=== PATIENT | female | born 1930 | race Caucasian/White ===

== ENCOUNTER 2017-04-26 19:14 | Day surgery (SDC) | payer MEDICARE, OTHER ==
[~2017-04-26] VITALS: Ht 162.6 cm; Wt 64.0 kg
[2017-04-26 18:56] VITALS: BP 197/93; PULSE 63; RESP 16; O2SAT 100
[~2017-04-26 19:14] MED LIST: ASPI500T8 PO; ATOR40TA69 PO; CALC-78 PO; CHOL200025 PO; HYDR-4003 PO; LISI10TA PO; METO50TA3 PO; MULT-1018 PO; ONDA-53 PO; POLY17PO6 PO; nitroquick SL
--- NOTE | 2017-04-26 19:52 | PCM.ENDCOL ---
Colonoscopy Date of Service: Apr 26, 2017 Physician Preet Santos MD Pre Procedure Diagnosis: abn CT Post Procedure Dx & Findings: 2-3 cm lesion at 40 cm Procedure Colonoscopy PROCEDURE IN DETAIL: Perianal examination normal. Digital normal. Normal prostate. Normal sphincter tone. No masses palpable. Scope lubricated, placed in the rectum, passed under direct visualization with the aid of insufflation t0 50 cm from anal verge. FINDINGS: The mucosa of the to the 50 cm was whitish, pink, smooth, glistening, normal- appearing mucosa, normal fine branching, underlying vascularity, normal haustra. At 45 cm, there was a 2-3 cm flat polypoid lesion. the scope easily went around it. Biopsies were obtained and 1 cc vic ink deployed. There were several small diverticuli in the sigmoid colon. IMPRESSION 2-3 cm lesion s/p biopsy and tatoo. Diverticuli RECOMMENDATION Follow up with Dr Olivares. Presedation Assessment Risks and Benefits Informed consent was obtained from the patient after all risks and benefits including but not limited to drug reaction, infection, pain, bleeding, perforation, as well as alternatives were discussed. Patient monitoring Continuous pulse oximetry, cardiac monitoring, blood pressure monitoring, IV access, and oxygen at 2L per nasal cannula. Complications There were no periprocedural complications identified. Post Procedure Plan Post Procedure Recommendations 1. Restrict activities today. 2. Resume normal activities in the morning. 3. Resume medications. 4. Patient informed of normal post procedure side effects as bloating, drowsiness, blood streaking in the stool. 5. average risk CRCS. If colon polyps come back as: -Hyperplastic- can repeat colonoscopy in 10 years -Tubular adenoma- repeat colonoscopy in 5 years -Tubulovillous/villous adenoma- repeat colonoscopy in 3 years -If any dysplasia- return to clinic as soon as possible 6. Please don't hesitate to call me with any questions. Preet Santos MD Apr 26, 2017 19:52
--- NOTE | 2017-04-30 12:42 | PATH ---
SURGICAL PATHOLOGY Attending Physician:Preet Santos M.D. CASE STATUS: Signed Out PATIENT NAME: LIBERTY BRAVO PID: [id number] : 1930 DATE COLLECTED:04/26/2017 00:00 SPECIMEN: Colon, Biopsy CLINICAL HISTORY: 1). COLON MASS @ 40CM BIOPSIES FINAL DIAGNOSIS: Colon Mass at 40 cm, Biopsy: Tubular adenoma with high grade dysplasia; please see comment. ICD10: D12.6 NOTE: One tissue fragment demonstrates a possible focus of desmoplasia. Invasive adenocarcinoma cannot be completely excluded as desmoplastic-type foci can be associated with both overlying, benign mucosal erosion (in superficial biopsies) and with invasive tumor. My gastrointestinal pathologist colleagues, Drs. Paige Gregg, Fidencio Singer, and Bruno Boudreaux, have reviewed this case and concur with the above interpretation. Drs. Santos and Marshall notified of results on 04/30/2017 at approximately 12:30 p.m. GROSS DESCRIPTION: The specimen is received in one formalin filled container labeled with the patient's name, sublabeled "mass at 40 CM" and consists of 2 portions of tissue which aggregate to 0.3 x 0.2 x 0.2 CM. The specimen is entirely submitted in one cassette. 04/27/2017 [facility] ICD-9 CODES: CPT CODES: 1: 48179, 14739, 76463, 64129, 30931 Electronically Signed Out Chichi Sommer MD [facility] Pathology [facility] [address], [place] [address] Technical component performed at [facility], [facility] [address], [place], [address]
== END 2017-04-26 23:59 | disposition home or self-care (01) ==
LOC: END 19:14
PROVIDERS: ATTEND Internal Medicine
DX: D12.6 Benign neoplasm of colon, unspecified (principal); K57.30 Diverticulosis of large intestine without perforation or abscess without bleeding

== ENCOUNTER → 2017-07-18 | Day surgery (SDC) | payer MEDICARE, OTHER ==
[~2017-07-18] VITALS: Ht 162.6 cm; Wt 65.0 kg
[~2017-07-18] MED LIST changes: +ASPI-973 PO; -ASPI500T8 PO; +HYG25 PO; +Ketamine 10 mg/mL 20 mL Inj ONE; +LACT10SO27 PO; +LISI-567 PO; +Lactated Ringer's 1,000 ML IV ONE; +Lactated Ringer's 1,000 ML IV SCH; +MetoCLOpramide 5 mg/mL 2 mL Inj IVPUSH PRN; +NITR0.4T6 SL; +Ondansetron 2 mg/mL 2 mL Inj IVPUSH PRN; -POLY17PO6 PO; +PSYL0.4C2 PO; +Propofol 10,000 mCg/mL 20 mL Inj ONE; -nitroquick SL
--- NOTE | 2017-07-18 07:36 | PCM.HPANE ---
Patient Data Surgeon Admitting Provider: Attending Provider:Preet Santos MD Primary Care Physician:Hilda Hopepr MD Other Provider:BalocSelenaLowman Anesthesia Reason for Visit Lesion On Colon Ht/WT & BMI Body Mass Index Allergies Coded Allergies: No Known Allergies (Verified Allergy, Unknown, 02/29/16) Past Anesthesia History Anesthesia History: Denies:: Abnormal Airway, Anesthesia Reactions, Difficult Intubation, Fam Anesthesia Reaction, Fam Malignant Hypertherm, Malignant Hyperthermia Diabetes History Hx Diabetes?: No MRSA MRSA: No Medications Blood Thinner: Aspirin Hypertension Medication: Yes Home Meds Incl Beta Alayna: No Active Scripts Hydrocodone-Acetaminophen 5-325 mg 1 Each Tablet1-2 Tablet PO Q4H PRN For Moderate Pain #60 TABLET Prov:Quan Melendez PA-C 03/07/16 Reported Medications Metoprolol Tartrate 50 Mg Lpginm18 Mg PO BID 30 Days Ref 0 1 in am 2 in pm 07/18/17 Nitroglycerin SL 0.4 Mg Tab.subl0.4 Mg SL DIRECTED PRN For Chest Pain 07/16/17 Lisinopril 20 Mg Utetak61 Mg PO BID 30 Days Ref 0 07/16/17 Lactulose 10 Gm/15 Ml Kaonhess01 Gm PO BID 07/16/17 Chlorthalidone 25 Mg Omueoy06 Mg PO DAILY #30 TABLET 07/16/17 Aspirin 81 Mg Kotbgr88 Mg PO DAILY Ref 0 07/16/17 Cholecalciferol (Vitamin D3) (Vitamin D3)2,000 Unit Tablet2,000 Unit PO DAILY 03/05/16 Multivitamin (Multi Vitamin Daily)1 Each Tablet1 Each PO DAILY 30 Days Ref 0 03/05/16 Lisinopril 10 Mg Kkzeol82 Mg PO DAILY 30 Days Ref 0 03/05/16 Calcium Carbonate/Vitamin D3 (Calcium 500 + Vit D Caplet)1 Each Tablet1 Each PO DAILY 03/05/16 Atorvastatin Calcium 40 Mg Hxjwnz87 Mg PO HS #30 TABLET Ref 0 08/17/14 Discontinued Reported Medications Psyllium Husk (Metamucil)0.4 Gram Capsule1 Tsp PO DAILY 07/16/17 Ondansetron 4 Mg Tablet4 Mg PO prn PRN For Nausea 03/05/16 [nitroquick] No Conflict Check0.4 Mg SL PRN chest pain 03/05/16 Metoprolol Tartrate 50 Mg Hwtxzv91 Mg PO BID 30 Days Ref 0 03/05/16 Polyethylene Glycol 3350 (Miralax)17 Gm Powd.pack17 Gm PO DAILY 03/05/16 Discontinued Scripts Aspirin EC 500 Mg Tablet.dr325 Mg PO BID DVT prophylaxis #1 BOTTLE Ref 0 Prov:Quan Melendez Natalie SLATER 03/07/16 History History of ENT Problems?: Yes HEENT History: Positive for:: Cataracts (removed in 2010) Denies:: Abnormal Airway Difficult Intubation Dysphagia Hearing Problem Sinus Problem Denture Type: None Teeth Condition: Within Normal Limits Hx of Heart Problems?: Yes Cardiovascular History: Positive for:: Edema (occasional) Hypertension Denies:: AICD Atrial Fibrillation Cardiac Surgery Chest Pain Congestive Heart Failure Heart Murmur Irregular Heartbeat Pacemaker Thrombophlebitis Valvular Heart Disease Hx of Respiratory Problem?: No Respiratory History: Denies:: Asthma COPD Chest Surgery Cough Dyspnea Emphysema Hemoptysis Pneumonia Tuberculosis Hx Neurologic Problems?: No Neurological History: Denies:: Alzheimer's Disease CVA Dementia Dizziness Headaches Parkinson's Disease Seizures Hx of GI Problems?: Yes Hx of Problems?: No Genitourinary History: Denies:: HX of Hemodialysis Kidney Stones Urinary Tract Infection HX of Peritoneal Dialysis: No Female Hx: Denies:: Currently Endometriosis Pelvic Inflammatory Problems with Breasts? Skin History: Denies:: History Skin Disorders? Pressure Ulcers Hx Musculoskeletal Problems?: Yes Musculoskeletal History: Denies:: Back Injury Joint Replacement Musculoskeletal Trauma Hx of Psycho/Social Problems?: No Psycho Social History: Denies:: Anxiety Bipolar Disorder Hx Depression Suicide Attempt Hx Surgeries?: Yes (stent placed) Hx Any Other Health Problems?: Yes Other History: Denies:: Cancer Endocrine Disease Hospitalization Thyroid Disease History Blood Transfusions: Denies:: Blood Transfusions Hx Diabetes: No Hx Alcohol Use: NoHx Substance Use: No Smoking Status: Never Smoker Have You Smoked inLast 12 mo: No Stop/Bang Treated for Sleep Apnea?: No Do You Have a CPAP Machine?: No ZOE Risk Assessment: Low Risk, <3 Yes Risk Assessment Category Category 1A: Patient has history of documented sleep apnea, and HAS NOT received any narcotic, sedative or anesthesia administration during this stay. Category 1B: Patient has history of documented sleep apnea, and HAS received any narcotic , sedative or anesthesia administration during this stay Category 2: Patient has SUSPECTED Obstructive Sleep Apnea, and HAS received any narcotic , sedative or anesthesia administration during this stay. Category 3: Patient has SUSPECTED Obstructive Sleep Apnea and HAS NOT received narcotic, sedative or anesthesia administration during this stay. Category 4: Outpatient in Procedural Areas with known sleep apnea or who screen positive for High Risk via the STOP/BANG questionnaire. Exam Exam General Appearance: Alert, Oriented X3, Cooperative, No Acute Distress HEENT/AIRWAY: MP 2 Lungs: Clear to Auscultation, Normal Air Movement Heart: Exam Unremarkable, Regular Rate/Rhythm, No Murmurs/Rubs/Gallops Plan Impression Patient chart reviewed, patient interviewed and anesthestic plan with risks, benefits, and alternatives discussed, and informed consent obtained. NPO per Anesth. Guidelines: Yes ASA Physical Status: ASA3 Severe Disease Anesthetic Plan: MAC Bene/Risks/Altern/Consents: Yes HP Complete Prior to Induction: Yes Sidney Luu MD Jul 18, 2017 07:36
[2017-07-18 08:40] VITALS: BP 161/79; PULSE 71; RESP 16; O2SAT 98
--- NOTE | 2017-07-18 09:28 | PCM.ENDCOL ---
Colonoscopy Date of Service: Jul 18, 2017 Physician Preet Santos MD Pre Procedure Diagnosis: Colon polyp Post Procedure Dx & Findings: Sigmoid lesion 2 cm. Diverticuli. Polyps. Hemorrhoids. Procedure Colonoscopy PROCEDURE IN DETAIL: Sedation by anesthesiology Prep adequate Withdrawal time 15 minutes After unremarkable rectal examination the Olympus video colonoscope was inserted patient's anal canal and was advanced to cecum. Landmarks were identified including the ileocecal valve and appendiceal orifice. Scope was withdrawn systematically. Visualized colonic mucosa showed healthy shiny mucosa with normal healthy-appearing vasculature. In the cecum, there was a 6 mm flat polyp which was removed completely using cold snare. In the transverse colon there was a 3 mm polyp which was removed completely using cold snare. In the sigmoid colon, there was a 2 cm lesion. With anesthesia, I was able to get a better look. There is some friability noted. With some central scarring. Biopsies done multiple. Tattoo noted from flexible sigmoidoscopy. Diverticuli noted mostly in the sigmoid colon however isolated although up to the ascending colon. In the rectum retroflexion was done which showed hemorrhoids. Anal canal was inspected carefully on the way out and hemorrhoids noted. Impression 2 cm colonic lesion. Colon polyps 2 status post complete removal Diverticuli Hemorrhoids Recommendation I will up in the GI clinic and follow-up with Dr. Olivares in surgery. Diverticular diet Presedation Assessment Risks and Benefits Informed consent was obtained from the patient after all risks and benefits including but not limited to drug reaction, infection, pain, bleeding, perforation, as well as alternatives were discussed. Patient monitoring Continuous pulse oximetry, cardiac monitoring, blood pressure monitoring, IV access, and oxygen at 2L per nasal cannula. Complications There were no periprocedural complications identified. Post Procedure Plan Post Procedure Recommendations 1. Restrict activities today. 2. Resume normal activities in the morning. 3. Resume medications. 4. Patient informed of normal post procedure side effects as bloating, drowsiness, blood streaking in the stool. 5. average risk CRCS. If colon polyps come back as: -Hyperplastic- can repeat colonoscopy in 10 years -Tubular adenoma- repeat colonoscopy in 5 years -Tubulovillous/villous adenoma- repeat colonoscopy in 3 years -If any dysplasia- return to clinic as soon as possible 6. Please don't hesitate to call me with any questions. Preet Santos MD Jul 18, 2017 09:28
[2017-07-18 09:34] VITALS: BP 138/67; PULSE 67; RESP 16; O2SAT 100
[2017-07-18 09:42] VITALS: BP 150/71; PULSE 68; RESP 16; O2SAT 100
[2017-07-18 09:51] VITALS: BP 154/70; PULSE 63; RESP 16; O2SAT 99
--- NOTE | 2017-07-19 09:16 | PCM.ANEP1 ---
Post Anesthesia PACU Phase 1 Assessment Anesthetic Administered: MAC Level of Alertness: Awake, talking GUADARRAMA's with Equal Strength: Yes Pain: No Nausea or Vomiting: No CV Function & Hydration Stable: Yes Airway Device: none Lungs: Clear to Auscultation, Normal Air Movement Dermatome Level: Full Sensation PACU Phase 2 Assessment Complications: No Follow up Care: No Patient Instructions Provided: N/A Sidney Luu MD Jul 19, 2017 09:16
--- NOTE | 2017-07-22 16:54 | PATH ---
SURGICAL PATHOLOGY Attending Physician:Preet Santos M.D. CASE STATUS: Signed Out PATIENT NAME: LIBERTY BRAVO PID: [id number] : 1930 DATE COLLECTED:07/18/2017 21:46 SPECIMEN: 1: Colon, Polyp 2: Colon, Polyp 3: Colon, Biopsy CLINICAL HISTORY: 1). CECAL POLYP X1 2). TRANSVERSE POLYP X1 3). SIGMOID MASS X1 FINAL DIAGNOSIS: 1. Cecal Polyp, Polypectomy: Sessile serrated adenoma. 2. Transverse Colon Polyp, Polypectomy: Serrated polyp, favor sessile serrated adenoma. 3. Sigmoid Mass, Biopsy: Adenocarcinoma, moderately differentiated. ICD10: C18.9 NOTE: Part 3: As part of routine quality compliance coordinator, Dr. Zee has reviewed part 3 of this case agrees with the above interpretation. The preliminary findings were reported to Dr. Santos's nurse February, on 07/22/2017 at 11:15 a.m. GROSS DESCRIPTION: Received three formalin-filled containers, each labeled with the patient' s name. 1. Received in formalin, labeled with the patient' s name and "colon polyp", is one fragment of elliott, firm tissue measuring 1.0 x 0.7 x 0.1 cm. The fragment is totally submitted in cassette 1A. 2. Received in formalin, labeled with the patient' s name and "transverse polyp", are four fragments of elliott, soft tissue ranging from 0.2 x 0.1 x 0.1 cm to 0.5 x 0.4 x 0.2 cm. The fragments are totally submitted in cassette 2A. 3. Received in formalin, labeled with the patient' s name and "sigmoid mass biopsy", are five fragments of elliott, soft tissue ranging from 0.3 x 0.1 x 0.1 cm to 0.7 x 0.1 x 0.1 cm. The fragments are totally submitted in cassette 3A. [id number]) ICD-9 CODES: CPT CODES: 1: 86321 2: 07335 3: 52509 Electronically Signed Out Blayne Nichole MD, Ph.D. [facility] Pathology [facility]., [address] [place] [address], [place] [address] Technical component performed at [facility], [address], [place], [address]
== END | disposition home or self-care (01) ==
LOC: END 01:22
PROVIDERS: ATTEND Internal Medicine
DX: Z12.11 Encounter for screening for malignant neoplasm of colon (principal); C18.7 Malignant neoplasm of sigmoid colon; D12.0 Benign neoplasm of cecum; D12.3 Benign neoplasm of transverse colon; K57.30 Diverticulosis of large intestine without perforation or abscess without bleeding; K64.8 Other hemorrhoids; Z86.010 Personal history of colon polyps; I10 Essential (primary) hypertension; E78.5 Hyperlipidemia, unspecified; I25.2 Old myocardial infarction; M81.0 Age-related osteoporosis without current pathological fracture; Z86.73 Personal history of transient ischemic attack (TIA), and cerebral infarction without residual deficits; Z79.82 Long term (current) use of aspirin
CPT/HCPCS: 45385; J2704

== ENCOUNTER 2017-08-16 05:50 | Inpatient (IN) | payer MEDICARE, OTHER ==
[2017-08-16] VITALS (8 sets, daily range): BP systolic 154–184; BP diastolic 65–82; PULSE 65–72; RESP 14–24; O2SAT 99–100
[~2017-08-16] VITALS: Ht 162.6 cm; Wt 69.0 kg
[2017-08-16] MEDS: Lactated Ringer's 1,000 ML IV SCH ×4 (05:00→10:00)
[~2017-08-16 05:50] MED LIST changes: +Dexamethasone 4 mg/mL Inj ONE; -HYDR-4003 PO; +HYDROmorphone 1 mg/mL Inj ONE; -Ketamine 10 mg/mL 20 mL Inj ONE; -LISI10TA PO; -Lactated Ringer's 1,000 ML IV ONE; -Lactated Ringer's 1,000 ML IV SCH; -MetoCLOpramide 5 mg/mL 2 mL Inj IVPUSH PRN; +MetoCLOpramide 5 mg/mL 2 mL Inj ONE; +NITR0.4T38 SL; -NITR0.4T6 SL; -ONDA-53 PO; -Ondansetron 2 mg/mL 2 mL Inj IVPUSH PRN; +Ondansetron 2 mg/mL 2 mL Inj ONE; -PSYL0.4C2 PO; +Rocuronium 10 mg/mL 5 mL Inj ONE
[2017-08-16] MEDS ORDERED: metroNIDAZOLE Inj 500 MG in IV Premix 1 EACH IV ONE (06:00)
[2017-08-16] MEDS ORDERED: CeFAZolin Inj 2 GM in IV Premix 1 EACH IV ONE (06:00)
[2017-08-16] MEDS ORDERED: METO50TA3 PO (06:40)
[2017-08-16] MEDS ORDERED: LACT10SO64 PO (06:40)
--- NOTE | 2017-08-16 07:17 | PCM.HPANE ---
Patient Data Surgeon Admitting Provider: Attending Provider:Lelia Olivares MD Primary Care Physician:Hilda Hopper MD Other Provider:Salvador Perez Anesthesia Reason for Visit Sigmoid Colon Cancer Ht/WT & BMI Height (Feet): 5 Height (Inches): 4 Weight (Kilograms): 64.5 Body Mass Index 24.00 Allergies Coded Allergies: No Known Allergies (Verified Allergy, Unknown, 08/14/17) Past Anesthesia History Anesthesia History: Denies:: Abnormal Airway, Anesthesia Reactions, Difficult Intubation, Fam Anesthesia Reaction, Fam Malignant Hypertherm, Malignant Hyperthermia Diabetes History Hx Diabetes?: No MRSA MRSA: No Medications Blood Thinner: Aspirin Hypertension Medication: Yes (LISINOPRIL,CHLORTHALIDONE) Home Meds Incl Beta Alayan: Yes Date Beta Alayna Taken: Aug 16, 2017 Time Beta Alayna Taken: 344 Reported Medications Metoprolol Tartrate 50 Mg Goizic309 Mg PO HS 30 Days Ref 0 08/16/17 Lactulose (Constulose)10 Gm/15 Ml Solution1 Tbs PO HS PRN For Constipation #300 08/16/17 Metoprolol Tartrate 50 Mg Dwkbyk47 Mg PO AM 30 Days Ref 0 1 in am 2 in pm 07/18/17 Nitroglycerin SL 0.4 Mg Tab.subl0.4 Mg SL DIRECTED PRN For Chest Pain 07/16/17 Lisinopril 20 Mg Tfioet95 Mg PO BID 30 Days Ref 0 07/16/17 Chlorthalidone 25 Mg Bwgrxk82 Mg PO DAILY #30 TABLET 07/16/17 Aspirin 81 Mg Iywsyv92 Mg PO DAILY Ref 0 07/16/17 Cholecalciferol (Vitamin D3) (Vitamin D3)2,000 Unit Tablet2,000 Unit PO DAILY 03/05/16 Multivitamin (Multi Vitamin Daily)1 Each Tablet1 Each PO DAILY 30 Days Ref 0 03/05/16 Calcium Carbonate/Vitamin D3 (Calcium 500 + Vit D Caplet)1 Each Tablet1 Each PO DAILY 03/05/16 Atorvastatin Calcium 40 Mg Xacyoq61 Mg PO HS #30 TABLET Ref 0 08/17/14 Discontinued Reported Medications Lactulose 10 Gm/15 Ml Ukxrxwiu92 Gm PO BID 07/16/17 Lisinopril 10 Mg Whtugt13 Mg PO DAILY 30 Days Ref 0 03/05/16 Discontinued Scripts Hydrocodone-Acetaminophen 5-325 mg 1 Each Tablet1-2 Tablet PO Q4H PRN For Moderate Pain #60 TABLET Prov:Quan Melendez PA-C 03/07/16 History History of ENT Problems?: Yes HEENT History: Positive for:: Cataracts (S/P EXTRACTIONS) Denies:: Abnormal Airway Difficult Intubation Dysphagia Hearing Problem Sinus Problem Denture Type: None Teeth Condition: Within Normal Limits Hx of Heart Problems?: Yes Cardiovascular History: Positive for:: Chest Pain (HX [place] 2013) Coronary Artery Disease Edema (occasional) Heart Murmur (GR SYSTOLIC ECHO 07/2016 EF 55%) Hypertension (HYPERLIPIDEMIA) Valvular Heart Disease (MILD MR, TR MILD-MOD AR) Denies:: AICD Atrial Fibrillation Cardiac Surgery (HEART CATH KENNA- RCA 2013) Congestive Heart Failure Irregular Heartbeat Pacemaker Thrombophlebitis Hx of Respiratory Problem?: No Respiratory History: Denies:: Asthma COPD Chest Surgery Cough Dyspnea Emphysema Hemoptysis Pneumonia Tuberculosis Use of C-PAP Machine Hx Neurologic Problems?: Yes Neurological History: Positive for:: TIA (11/2015 LT HAND WEAKNESS) Denies:: Alzheimer's Disease CVA Dementia Dizziness Headaches Parkinson's Disease Seizures Hx of GI Problems?: Yes Hx of Problems?: No Genitourinary History: Denies:: HX of Hemodialysis Kidney Stones Urinary Tract Infection HX of Peritoneal Dialysis: No Female Hx: Denies:: Currently Endometriosis Pelvic Inflammatory Problems with Breasts? Skin History: Positive for:: History Skin Disorders? (S/P EXC BASAL CELL CA'S) Denies:: Pressure Ulcers Hx Musculoskeletal Problems?: Yes Musculoskeletal History: Positive for:: Back Injury (cervical spondylosis- back pain cannot lie flat) Musculoskeletal Trauma (S/P ORIF LT OLECRANON) Osteoarthritis (OSTEOPOROSIS) Denies:: Joint Replacement Hx of Psycho/Social Problems?: No Psycho Social History: Denies:: Anxiety Bipolar Disorder Hx Depression Suicide Attempt Hx Surgeries?: Yes (FX ARM, CARDIAC STENT 2014, CATARACTS) Hx Any Other Health Problems?: Yes Other History: Positive for:: Cancer (BCC lt arm, scalp,SIGMOID COLON) Thyroid Disease (NEW DX-THYROID NODULES RT-HIGHLY SUSPICIOUS/RECOMMENDED NEEDLE ASPIRATION) Denies:: Endocrine Disease Hospitalization History Blood Transfusions: Denies:: Blood Transfusions Hx Diabetes: No Hx Alcohol Use: NoHx Substance Use: No Smoking Status: Never Smoker Have You Smoked inLast 12 mo: No Stop/Bang Treated for Sleep Apnea?: No Do You Have a CPAP Machine?: No S-Snoring: Do You Snore Loudly: No T-Tired: feel tired, fatigued: No O-Obsered: Observed not breath: No P-Blood Pressure: treated: Yes B- Body Mass Index > 35 kg/m2: No A- Age over 50: Yes N- Neck Large Circumference: No G- Gender Male: No ZOE Total Score: 2 ZOE Risk Assessment: Low Risk, <3 Yes Risk Assessment Category Category 1A: Patient has history of documented sleep apnea, and HAS NOT received any narcotic, sedative or anesthesia administration during this stay. Category 1B: Patient has history of documented sleep apnea, and HAS received any narcotic , sedative or anesthesia administration during this stay Category 2: Patient has SUSPECTED Obstructive Sleep Apnea, and HAS received any narcotic , sedative or anesthesia administration during this stay. Category 3: Patient has SUSPECTED Obstructive Sleep Apnea and HAS NOT received narcotic, sedative or anesthesia administration during this stay. Category 4: Outpatient in Procedural Areas with known sleep apnea or who screen positive for High Risk via the STOP/BANG questionnaire. Exam Exam Vital Signs Vital Signs Date Time Temp Pulse Resp B/P Pulse Ox O2 Delivery O2 Flow Rate FiO2 08/16/17 06:33 36.5 67 17 175/65 100 Room Air General Appearance: Oriented X3 HEENT/AIRWAY: MP 2 Lungs: Normal Air Movement Heart: Murmur Meds/Labs/Diagnostics Admission Meds Current Medications Lactated Ringer's (Lr) 1,000 ml @ 120 mls/hr Q8H20M IV Last administered on t 06:28; Start 08/16/17 at 05:00; Stop 08/16/17 at 13:19 Plan Impression Patient chart reviewed, patient interviewed and anesthestic plan with risks, benefits, and alternatives discussed, and informed consent obtained. NPO per Anesth. Guidelines: Yes ASA Physical Status: ASA3 Severe Disease Anesthetic Support Modalities: Arterial Line Anesthetic Plan: GA Bene/Risks/Altern/Consents: Yes HP Complete Prior to Induction: Yes Castillo Aranda MD Aug 16, 2017 07:17
[2017-08-16] MEDS ORDERED: Bupivacaine-MPF 0.5% 30 mL Inj INFILTRATE ONE (07:28)
[2017-08-16] MEDS ORDERED: Lactated Ringer's 1,000 ML IV SCH (09:28)
[2017-08-16] MEDS ORDERED: Lactated Ringer's 500 ML IV PRN (09:28)
[2017-08-16] MEDS ORDERED: Ondansetron 2 mg/mL 2 mL Inj IVPUSH PRN ×2 (09:30→11:45)
[2017-08-16] MEDS ORDERED: fentaNYL-PF 50 mCg/mL 2 mL Inj IVPUSH PRN (09:30)
[2017-08-16] MEDS ORDERED: HYDROmorphone 1 mg/mL Inj IVPUSH PRN (09:30)
[2017-08-16] MEDS ORDERED: Labetalol 5 mg/mL 20 mL Inj IV PRN (09:30)
[2017-08-16] MEDS ORDERED: Phenylephrine 10,000 mCg/mL Inj IVPUSH PRN (09:30)
[2017-08-16] MEDS ORDERED: Dexamethasone 4 mg/mL Inj IVPUSH PRN (09:30)
[2017-08-16] MEDS ORDERED: MetoCLOpramide 5 mg/mL 2 mL Inj IVPUSH PRN ×2 (09:30→11:45)
[2017-08-16] MEDS ORDERED: EPHEDrine Sulfate 50 mg/mL Inj IVPUSH PRN (09:30)
[2017-08-16] MEDS ORDERED: Bupivacaine Liposome 1.3% 20 mL Inj ONE (11:10)
[2017-08-16] MEDS ORDERED: HYDROmorphone 0.5 mg/0.5 mL iSecure Syringe IVPUSH PRN (11:45)
[2017-08-16] MEDS ORDERED: Polyethylene Glycol (PEG) 17 Gm Powder PO SCH (12:00)
[2017-08-16 12:24] LABS: APPEARANCE,URINE HAZY (CLEAR,HAZY); COLOR,URINE YELLOW (YELLOW); OCCULT BLOOD,URINE NEGATIVE (NEGATIVE); PH,URINE 5.5 (5.0-8.0); UROBILINOGEN,URINE NORMAL (NORMAL)
--- NOTE | 2017-08-16 12:46 | PCM.ANEP1 ---
Post Anesthesia PACU Phase 1 Assessment Vital Signs Vital Signs Date Time Temp Pulse Resp B/P Pulse Ox O2 Delivery O2 Flow Rate FiO2 08/16/17 12:17 66 24 162/82 100 Simple Mask 8 08/16/17 12:05 65 15 161/76 100 Simple Mask 8 08/16/17 12:00 68 16 158/80 100 Simple Mask 8 08/16/17 11:55 68 16 167/72 99 Simple Mask 8 08/16/17 11:50 36.0 65 14 168/70 100 Simple Mask 8 08/16/17 06:33 36.5 67 17 175/65 100 Room Air Anesthetic Administered: GA Level of Alertness: Awake, talking Pain: No Nausea or Vomiting: No CV Function & Hydration Stable: Yes Airway Device: Lungs: Normal Air Movement PACU Phase 2 Assessment Patient Instructions Provided: N/A Castillo Aranda MD Aug 16, 2017 12:45
[2017-08-16] MEDS: Dextrose 5% Lactated Ringer's 1,000 ML IV SCH (13:58)
[2017-08-16] MEDS: Acetaminophen IV 1,000 MG in IV Premix 1 EACH IV SCH ×2 (14:30→19:34)
--- NOTE | 2017-08-16 14:31 | OP ---
[address] [address] OPERATIVE REPORT PATIENT: LIBERTY BRAVO : 1930 MR#: [id number] ADMIT: 08/16/2017 JOB ID: [id number] DATE OF SURGERY: 08/16/2017 SURGEON: Lelia Olivares MD. HOE WORKER: Tavon Ortez MD; Ravindra Bailey PA-C. Assistants were required for dissection and retraction. 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 PROCEDURE PERFORMED: 1. Laparoscopic sigmoid colectomy. 2. Laparoscopic mobilization of splenic flexure. 3. Rectus sheath blocks with liposomal bupivacaine. HISTORY OF PRESENT ILLNESS: This is an 87-year-old woman who presented to my office after she had been having longstanding symptoms of constipation and a CT scan had been ordered by her primary care provider, which showed what was a possible rectal mass. For that reason, she underwent anoscopy followed by flexible sigmoidoscopy, and there was no rectal mass; however, a worrisome polyp was seen at 45 cm. Subsequent full colonoscopy was performed and a biopsy of this 2 cm lesion at 45 cm from the rectal verge revealed adenocarcinoma, moderately differentiated. Additional workup revealed no sign of metastatic disease. Therefore, she was scheduled for sigmoid colectomy. Of note, prior to the operation, a mechanical and antibiotic bowel prep had been performed. FINDINGS: 1. The tattoo associated with the sigmoid cancer was located within the proximal sigmoid colon and was easily identified. 2. Medial to lateral dissection was performed with high ligation of ARIS. 3. The proximal staple line initially was only 2.5 cm from the colon after it was opened on the back table. For this reason, an additional proximal margin was taken. 4. Tariq anastomosis, side-to-end, performed with an EEA stapler. 5 . No sign of leak on testing after the anastomosis. DESCRIPTION OF PROCEDURE: The patient was brought to the operating room and placed in supine position. General anesthesia was induced. A warming blanket and SCDs were placed. She was repositioned into lithotomy position. The IV antibiotics were infused. A warming blanket was placed. The operative field was prepped and draped in sterile fashion. A pause was performed to confirm the correct patient, procedure, side and site. An infraumbilical 10 mm vertical incision was made and the abdomen was entered under direct vision. Additional 5 mm ports were placed in the left upper quadrant, right lower quadrant, lower midline of the abdomen, and left lower quadrant. Ultimately, the lower midline 5 mm port was up- sized to a 12 mm port for the stapler. Inspection of the colon revealed the tattoo in the proximal sigmoid colon. The small intestine was retracted to the right and the colon up to the left. The sacral promontory was identified and the peritoneum overlying the mesentery was divided. A plane was created behind the mesentery and anterior to the retroperitoneum. The ureter was identified and kept posterior throughout the case. It was very carefully preserved. Dissection proceeded proximally under the ARIS and IMV. A window was made on the opposite side of this pedicle. The entire pedicle including both ARIS and IMV was taken with an Endo-ABEL with a vascular load. Hemostasis was achieved. The dissection proceeded out to the abdominal wall and a window was made behind the colon to create a proximal site for stapling. An Endo-ABEL was fired several centimeters proximal to the tattoo. Attention was then turned to the distal site of division. The mesentery was divided with a LigaSure and a distal site was chosen more than 10 cm distal to the tattoo. The colon was carefully cleaned off, both on the mesenteric side and abdominal wall side, the ureter was kept down and away from the colon. The distal site was divided with an Endo-ABEL stapler with a blue load. Three fires were required at this site. At this point, the specimen was free. The vertical midline site below the umbilicus was extended to remove the specimen. I had concerns about the distance of the proximal site from the tattoo, and therefore, the specimen was opened on the back table. The cancer was identified within the specimen, but it was only 2.5 cm distal to the proximal staple line. Gloves were changed, and because that site had been enlarged, a hand port was inserted. The proximal colon was then taken out of the midline site and an additional 3 cm margin was taken and sent for final pathology. Laparoscopic technique was then used to mobilize the splenic flexure in order to create enough laxity such that the anastomosis ultimately would be under no tension. Dr. Gee then went below to assess the size of the anorectal canal in order to choose an EEA stapler. A 29 mm stapler was chosen. The proximal colon was then exteriorized again and a Tariq anastomosis was chosen. An enterotomy was made after placing towels around the wound. The anvil was inserted and a 2-0 Prolene stitch was used to create a pursestring stitch around it. This was tightened and tied. It was reinserted into the abdomen. Gloves were changed and towels were removed. The orientation was checked to confirm that there is no sign of twisting. The EEA stapler was then inserted into the rectum and connected to the anvil laparoscopically. The stapler was fired and carefully removed. A leak test was then performed using air through the rectum and infusion of saline into the pelvis and there was no leak seen. The low mid abdominal 12 mm port site was closed laparoscopically using an interrupted 2-0 PDS and a Gulshan-Dino device. The hand port site in the midline of the abdomen just below the umbilicus was closed with running 2-0 PDS. Liposomal bupivacaine was injected into the rectus sheath for postoperative analgesia. Marcaine was used at all port sites for postoperative analgesia. A 3-0 Vicryl was used to close the subcutaneous tissue of the hand port site. The skin was closed with 4-0 Monocryl. Sterile dressings were placed. The patient was awakened from general anesthesia and taken to the postoperative care unit in good condition. ESTIMATED BLOOD LOSS: 10 mL. SPECIMENS: 1. Sigmoid colon. 2. New proximal margin. 3. Proximal and distal doughnuts from EEA anastomosis. COMPLICATIONS: None. MTDD
[2017-08-16] MEDS: Heparin 5,000 Unit/mL Inj SUBQ SCH (16:40)
[2017-08-17] MEDS: Heparin 5,000 Unit/mL Inj SUBQ SCH ×3 (00:49→16:41)
[2017-08-17] MEDS: Acetaminophen IV 1,000 MG in IV Premix 1 EACH IV SCH (02:30)
[2017-08-17] MEDS: Dextrose 5% Lactated Ringer's 1,000 ML IV SCH ×2 (02:43→12:44)
[2017-08-17 05:54] VITALS: BP 127/69; PULSE 63; RESP 18; O2SAT 97
[2017-08-17 06:36] LABS: BASOPHILS % (AUTO) 0.1 % (0-3); EOSINOPHILS % (AUTO) 0 % (0-5); MONOCYTES % (AUTO) 8.1 % (4-12); Mean Corpuscular Hemoglobin 31.3 pg (27.0-35.0); Mean Corpuscular Volume 90.9 fL (81-100); NEUTROPHILS % (AUTO) 86.5 % (40-74); Platelet Count 241 bil/L (150-400)
--- NOTE | 2017-08-17 08:12 | PCM.PNSURG ---
Subjective Date of Service: Aug 17, 2017 Date of Service: Aug 17, 2017 Visit Information: Reason for Visit Sigmoid Colon Cancer Surgery/Surgery Date Post-Op Day # 1 Date of Admission: Aug 16, 2017 at 13:19 Hospital Day # 2 Subjective: Pain well controlled. No acute events overnight. [place] the urge to have a bowel movement this morning, bloated but couldn't pass anything yet. Tolerated some sips of water but not interested in anything else, no N/V, taking things slowly. Feels the SCDs are restrictive and would like to get up and walk instead. Objective Vital Sign- Last 8 Hours Date Time Temp Pulse Resp B/P Pulse Ox O2 Delivery O2 Flow Rate FiO2 08/17/17 05:54 36.8 63 18 127/69 97 Room Air Intake and Output- Last 8 Hour 08/17/17 Cumulative From/Thru 06:58 08/14/17 12:26 - 08/17/17 05:23 Intake Total 806 ml 2724 ml Output Total 710 ml Balance 806 ml 2014 ml Intake Oral 200 ml IV Total 806 ml 2524 ml Output Urine Total 700 ml Estimated Blood Loss 10 ml General: Alert, Oriented X3, Cooperative, No Acute Distress Lungs: Other (Breathing comfortably on room air) Heart: Other (Regular rate) Abdomen: Other (Soft, moderate distension, incisions c/d/i with bandaids over all port sites, some air to percussion. Appropriately tender.) Extremities: Warm Neuro: Grossly Neurologically Intact Catheters: Urethral 2 Way [place] Result Diagram: 08/17/1753208/17/1733 Assessment & Plan Impression 87F with sigmoid colon adenocarcinoma s/p laparoscopic sigmoid colectomy with stapled anastomosis recovering well on POD#1. Problems: Plan Neuro: Continue scheduled PO tylenol, prn oxycodone and ibuprofen CV/P: Home medications resumed, Aspirin, Beta reina, BP meds FEN/GI: Full liquid diet until return of bowel function, bowel regimen miralax BID, senna-docusate, replete KCl PO today MSK: Physical therapy consult, mobility and assess home needs versus possible SNF Heme/ID: No antibiotics, SQH for DVT prophylaxis, D/C SCDs Dispo: Pending PT evaluation and return of bowel function Tavon Ortez MD Aug 17, 2017 08:12
[2017-08-17] MEDS ORDERED: Potassium Chloride 20 mEq SR Tablet PO ONE (08:15)
[2017-08-17 08:38] VITALS: BP 166/70; PULSE 61; RESP 15; O2SAT 97
[2017-08-17] MEDS: Calcium Carbonate (Oyster Shell) 500 mg Tablet PO SCH (08:43)
[2017-08-17] MEDS: Senna-Docusate 8.6-50 mg Tablet PO SCH (08:43)
[2017-08-17 12:17] VITALS: BP 160/69; PULSE 59; RESP 20; O2SAT 99
[2017-08-17 20:09] VITALS: BP 186/80; PULSE 62; RESP 19; O2SAT 98
[2017-08-17] MEDS: Polyethylene Glycol (PEG) 17 Gm Powder PO SCH (20:27)
[2017-08-18] MEDS: Heparin 5,000 Unit/mL Inj SUBQ SCH ×4 (00:56→23:47)
[2017-08-18] MEDS: Dextrose 5% Lactated Ringer's 1,000 ML IV SCH (01:14)
[2017-08-18 05:26] VITALS: BP 115/73; PULSE 90; RESP 16; O2SAT 93
[2017-08-18 05:28] VITALS: BP 172/65; PULSE 73; RESP 18; O2SAT 95
--- NOTE | 2017-08-18 06:53 | PCM.PNSURG ---
Subjective Date of Service: Aug 18, 2017 Date of Service: Aug 18, 2017 Visit Information: Reason for Visit Sigmoid Colon Cancer Surgery/Surgery Date Post-Op Day # 2 Date of Admission: Aug 16, 2017 at 13:19 Hospital Day # 2 Subjective: Feels well today. Starting to think about when she can go home. Multiple loose bowel movements and gas yesterday. Walked in the hallway three times. No N/V. Minimal abdominal discomfort. Hypertensive but asymptomatic and on home regimen. Tolerated full liquid diet, Impact drinks and oatmeal without issues. Objective Vital Sign- Last 8 Hours Date Time Temp Pulse Resp B/P Pulse Ox O2 Delivery O2 Flow Rate FiO2 08/18/17 05:28 36.6 73 18 172/65 95 Room Air Intake and Output- Last 8 Hour 08/18/17 Cumulative From/Thru 06:58 08/14/17 12:26 - 08/18/17 06:32 Intake Total 1040 ml 5360 ml Output Total 1250 ml 2910 ml Balance -210 ml 2450 ml Intake Oral 1040 ml 2160 ml IV Total 3200 ml Output Urine Total 1000 ml 2650 ml Stool Total 50 ml 50 ml Urine/Stool Mix 200 ml 200 ml Estimated Blood Loss 10 ml # Voids 3 # Bowel Movements 3 General: Alert, Oriented X3, Cooperative, No Acute Distress Lungs: Other (Breathing comfortably on room air.) Abdomen: Benign, Soft, Non-tender, Other (Bandaids removed and incisions are c/ d/i with steri strips in place. Some bruising around the umbilical port site, no cellulitis.) Neuro: Grossly Neurologically Intact Result Diagram: 08/17/17 0533 08/17/1733 Assessment & Plan Impression 87F with sigmoid colon adenocarcinoma s/p laparoscopic sigmoid colectomy with stapled anastomosis recovering well on POD#2. Problems: Plan Neuro: Continue scheduled PO tylenol, prn oxycodone and ibuprofen CV/P: Home medications contined Aspirin, Beta reina, BP meds, hypertensive but receiving home regimen and observing trend, would not add additional medications, permissive HTN okay FEN/GI: Return of bowel function, Soft diet today, Impact recovery drinks, bowel regimen miralax BID okay to hold if loose stools continue, senna-docusate MSK: Physical therapy recs for HH PT x2 weeks mobility Heme/ID: No antibiotics, SQH for DVT prophylaxis Dispo: Potential discharge home tomorrow with HH PT and friend Manasa to provide transportation [place],Tavon Knight MD Aug 18, 2017 06:53
[2017-08-18] MEDS: Calcium Carbonate (Oyster Shell) 500 mg Tablet PO SCH (08:27)
[2017-08-18] MEDS: Polyethylene Glycol (PEG) 17 Gm Powder PO SCH ×2 (08:27→20:02)
[2017-08-18] MEDS: Senna-Docusate 8.6-50 mg Tablet PO SCH (08:27)
[2017-08-18 11:10] VITALS: BP 135/58; PULSE 77; RESP 17; O2SAT 96
[2017-08-18 19:56] VITALS: BP 164/72; PULSE 52; RESP 16; O2SAT 98
[2017-08-19 06:37] VITALS: BP 162/80; PULSE 55; RESP 16; O2SAT 97
--- NOTE | 2017-08-19 08:25 | PCM.PNSURG ---
Subjective Date of Service: Aug 19, 2017 Date of Service: Aug 19, 2017 Visit Information: Reason for Visit Sigmoid Colon Cancer Surgery/Surgery Date Post-Op Day # 3 s/p 1. Laparoscopic sigmoid colectomy. 2. Laparoscopic mobilization of splenic flexure. 3. Rectus sheath blocks with liposomal bupivacaine. Date of Admission: Aug 16, 2017 at 13:19 Hospital Day # Subjective: Patient reports good pain control, no nausea or vomiting and good appetite on soft. Reports hx of "potassium issues". Comfortable today and hopes for d/c to make oncology appt. tomorrow. Postop General: No Complaints, No Shortness of Breath, No Chest Pain Gastrointestinal: Good Appetite, Tolerating Oral Feedings, No N/V, Passing Stool Pain Management: PO Neurological: Weakness (requiring cane.) Postop Activity: Ambulates with Assist Device (uses cane at baseline.) Objective Objective Pleasant elderly female in no apparent distress. Reading in bed. Vital Sign- Last 8 Hours Date Time Temp Pulse Resp B/P Pulse Ox O2 Delivery O2 Flow Rate FiO2 08/19/17 06:37 37.0 55 16 162/80 97 Room Air Intake and Output- Last 8 Hour 08/19/17 Cumulative From/Thru 07:00 08/14/17 12:26 - 08/19/17 06:37 Intake Total 450 ml 6530 ml Output Total 475 ml 4185 ml Balance -25 ml 2345 ml Intake Oral 450 ml 3330 ml IV Total 3200 ml Output Urine Total 475 ml 3925 ml Stool Total 50 ml Urine/Stool Mix 200 ml Estimated Blood Loss 10 ml # Voids 3 # Bowel Movements 2 10 General: Alert, Cooperative, No Acute Distress Lungs: Clear to Auscultation Heart: Regular Rate/Rhythm Abdomen: Soft, Appropriately tender, Non-distended, Normoactive bowel tones SURGICAL WOUND : Wound General Appearence: Steri Strips Dressing & Drainage Status: Intact, Minimal Catheters: None Result Diagram: 08/17/1733 08/17/17532 Assessment & Plan Impression satisfactory hospital course s/p Laparoscopic sigmoid colectomy, Laparoscopic mobilization of splenic flexure, Rectus sheath blocks with liposomal bupivacaine. Mildly hypokalemic and hypertensive though possibly her baseline. Some postop weakness requiring assistance with HH PT at discharge though anticipate good recovery potential. Problems: (1) Hypertension Status: Acute ICD Code: I10 (2) Hypokalemia Status: Acute ICD Code: E87.6 (3) Adenocarcinoma of sigmoid colon Status: Acute ICD Code: C18.7 Plan D/C today with few days of potassium supplementation F/U in 2 weeks with general surgery. F/U oncology tomorrow F/U primary care in ~1 month Pain Management: percocet for moderate pain, tylenol for mild pain VTE Prophylaxis: Sub-Q Heparin (Unfractionated) Resuscitation Status: CPR: Attempt Resuscitation Kevin Campbell PA-C Aug 19, 2017 08:25
[2017-08-19] MEDS: Heparin 5,000 Unit/mL Inj SUBQ SCH (08:30)
--- NOTE | 2017-08-19 08:54 | PCM.DISURG ---
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 You must be seen by General Surgery prior to driving.) Dressing and Incisional Care Dressing Care: Allow Steri Stripes to fall off Hygiene: May shower, DO NOT soak incision under water, NO bathtub, hot tub or whirlpool Follow Up Plan Follow Up Plan You will be following up with Dr. Olivares in approximately 2 weeks to go over how your doing and to discuss the surgical results and pathology diagnosis. Follow-up Provider (F9): Lelia Olivares MD Follow-up appointment: Weeks (2) Call your provider for: Fever, Chills, Shortness of breath, Increasing abdominal pain, Nausea, Vomiting, Wound redness, Increasing wound pain, Warmth to touch, Discharge @ incision, pus discharge Kevin Campbell PA-C Aug 19, 2017 08:54
[2017-08-19] MEDS ORDERED: POTA-62 PO (08:59)
[2017-08-19] MEDS ORDERED: HYDR-3090 PO (09:00)
--- NOTE | 2017-08-19 09:30 | PCM.DC.SUR ---
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 Laparoscopic sigmoid colectomy. 2. Laparoscopic mobilization of splenic flexure. 3. Rectus sheath blocks with liposomal bupivacaine. Brief History and Physical: This is an 87-year-old woman who presented to my office after she had been having longstanding symptoms of constipation and a CT scan had been ordered by her primary care provider, which showed what was a possible rectal mass. For that reason, she underwent anoscopy followed by flexible sigmoidoscopy, and there was no rectal mass; however, a worrisome polyp was seen at 45 cm. Subsequent full colonoscopy was performed and a biopsy of this 2 cm lesion at 45 cm from the rectal verge revealed adenocarcinoma, moderately differentiated. Additional workup revealed no sign of metastatic disease. Therefore, she was scheduled for sigmoid colectomy. Gen: pleasant, elderly female in no apparent distress. HEENT: clear oropharynx Chest: clear to auscultation Cor: regular rate and rhythm. No murmurs. Abd: soft, appropriately tender. Steristrips over surgical incisions. Clearing ecchymosis at midline. Normoactive bowel sounds. Ext: no edema Consultants: None: Hospital Course: Pateint was taken to the operating room for a planned surgical procedure. Please refer to the operative notes for details of the procedure. The patient tolerated the operation well and was then transferred to her hospital room where she remained for the balance of her hospital stay. On postoperative day 2 she was found to be able to tolerate oral feedings and pain was controlled. She was improved on postoperative day 3 to be able to be discharged home with home health pt and follow up with general surgery in 2 weeks. Her mild hypokalemia and eleveated BP necessitates close follow up with her primary care physician and a short course of potassium supplementation at discharge. Pathology: pending Disposition: good condition discharged to home. Follow-up Plan: [address] Lelia Olivares, General Surgeon Aspirin (Aspirin) 81 Mg Tablet 81 MG PO DAILY (Reported) Atorvastatin Calcium (Atorvastatin Calcium) 40 Mg Tablet 40 MG PO HS (Reported) Calcium Carbonate/Vitamin D3 (Calcium 500 + Vit D Caplet) 1 Each Tablet 1 EACH PO DAILY (Reported) Chlorthalidone (Chlorthalidone) 25 Mg Tablet 25 MG PO DAILY (Reported) Cholecalciferol (Vitamin D3) (Vitamin D3) 2,000 Unit Tablet 2,000 UNIT PO DAILY (Reported) Hydrocodone-Acetaminophen 5-300 mg (Hydrocodone-Acetaminophen 5-300 mg) 1 Each Tablet 1 TABLET PO Q4H PRN PRN For Pain Lactulose (Constulose) 10 Gm/15 Ml Solution 1 TBS PO HS PRN PRN For Constipation (Reported) Lisinopril (Lisinopril) 20 Mg Tablet 20 MG PO BID (Reported) Metoprolol Tartrate (Metoprolol Tartrate) 50 Mg Tablet 50 MG PO AM (Reported) 1 in am 2 in pm Metoprolol Tartrate (Metoprolol Tartrate) 50 Mg Tablet 100 MG PO HS (Reported) Multivitamin (Multi Vitamin Daily) 1 Each Tablet 1 EACH PO DAILY (Reported) Nitroglycerin SL (Nitroglycerin SL) 0.4 Mg Tab.subl 0.4 MG SL DIRECTED PRN PRN For Chest Pain (Reported) Potassium Chloride ER (Potassium Chloride ER) 20 Meq Tablet.er 20 MEQ PO DAILY TAKE WITH FOOD copies to: Hilda Hopper MD, Samuel L PA-C Aug 19, 2017 09:30
[2017-08-19 11:13] VITALS: BP 178/101; PULSE 78
[2017-08-19] MEDS: Polyethylene Glycol (PEG) 17 Gm Powder PO SCH (11:17)
[2017-08-19] MEDS: Senna-Docusate 8.6-50 mg Tablet PO SCH (11:18)
[2017-08-19] MEDS: Calcium Carbonate (Oyster Shell) 500 mg Tablet PO SCH (11:18)
--- NOTE | 2017-08-19 16:11 | PATH ---
SURGICAL PATHOLOGY Attending Physician:Lelia Olivares MD CASE STATUS: Signed Out PATIENT NAME: LIBERTY BRAVO PID: [id number] : 1930 DATE COLLECTED:08/16/2017 00:00 SPECIMEN: 1: Colon, Segment Resection for Tumor 2: Colon, Segment Resection for Tumor 3: Colon, Resection Margin (donut) 4: Colon, Resection Margin (donut) CLINICAL HISTORY: COLON CANCER 1). SIGMOID COLON 2). PROXIMAL MARGIN, STITCH DISTAL 3). PROXIMAL ANASTOMOTIC RING 4). DISTAL ANASTOMOTIC RING FINAL DIAGNOSIS: 1. Sigmoid Colon, Sigmoid Colectomy: Invasive colonic adenocarcinoma; see cancer case summary 2. Colon Proximal Margin, Resection: Segment of colon negative for carcinoma. 3. Colon, Proximal Anastomotic Ring, Excision: Colonic tissue negative for carcinoma. 4. Colon, Distal Anastomotic Ring, Excision: Colonic tissue with incidental hyperplastic polyp. Negative for carcinoma. CANCER CASE SUMMARY Specimen: Sigmoid colon. Procedure: Sigmoidectomy. Tumor site: Sigmoid colon. Tumor size: 2.2 cm. Macroscopic tumor perforation: Not identified. Histologic type: Adenocarcinoma. Histologic grade: Low grade (moderately differentiated). Microscopic tumor extension: Tumor invades muscularis propria. Margins: Distance of invasive carcinoma from closest margin: 3.2 cm, radial. Proximal margin: Uninvolved by invasive carcinoma, at least 3.8 cm (2 cm on glass slide in main specimen plus at least 1.8 cm given additional proximal margin (part B)). Distal margin: Uninvolved by invasive carcinoma, greater than 10 cm. Treatment effect: No prior treatment. Lymph-vascular invasion: Not identified. Perineural invasion: Not identified. Tumor deposits: Not identified. Pathologic staging: Primary tumor: pT2. Regional lymph nodes: pN0. Number of lymph nodes examined: 12. Number of lymph nodes involved: 0. NOTE: Immunohistochemistry for DNA mismatch repair proteins is pending and results will be issued in an addendum. GROSS DESCRIPTION: The specimens are received in formalin, labeled with the patient's name, and sublabeled as the following: (1) sigmoid colon (2) proximal margin; (3) proximal anastomosis ring; (4) distal anastomosis ring. (1) The specimen consists of an unoriented segment of colon (length-12.8 cm, resection margin #1 diameter-3.5 cm, resection margin #2 diameter-2.4 cm) with attached mesentery (up to 10.5 cm in depth). The resection margins are received stapled. The mucosa is elliott smooth and shiny with normal folds and contains a brown solid firm irregular mass (2.2 x 1.8 x 0.5 cm). The mass is 9.3 cm from resection margin #1, 1.7 cm from resection margin #2, and 3.2 cm from the radial resection margin. The mass appears to be confined to the lumen and does not extend through the wall into the mesentery. No other nodules, masses or lesions are identified. Multiple possible lymph nodes (0.1 x 0.1 x 0.1 cm-0.7 x 0.6 x 0.4 cm) are identified. Ink code: black-resection margin. Section code: (1A) resection margin #1, longitudinally sectioned, risk control representative; (1B) resection margin #2 with mass, longitudinally sectioned, risk control representative; (1C) radial resection margin, perpendicularly sectioned, risk control representative; (1D-1H) colon segment, serially sectioned and submitted from resection margin #1 to #2, mass entirely submitted; (1I, 1J) multiple intact lymph nodes. (2) The specimen consists of a segment of colon (length-1.8 cm, proximal diameter-3.1 cm, distal diameter-2.5 cm) with attached mesentery (up to 4.3 cm in depth). The resection margins are received stapled. A black suture indicates the distal margin. The mucosa is elliott smooth and shiny with normal folds. No nodules, masses or lesions are identified. Ink code: blue-proximal; black-distal. Section code: (2A) colon segment, longitudinally sectioned, risk control representative. (3) The specimen consists of an unoriented segment of colon (length-0.5 cm, diameter-2.0 cm) with attached adipose tissue (1.1 x 1.0 x 0.2 cm) sutured in a ring by a blue suture. The resection margin is received open. The mucosa is elliott smooth and shiny. No nodules, masses or lesions are identified. Ink code: black-resection margin. Section code: (3A-3B) colon segment, bisected, one in each cassette. Specimen entirely submitted. (4) the specimen consists of an oriented segment of colon (length - 0.6 cm, diameter - 1.9 cm) stapled in a ring. The resection margin is received open. The mucosa is elliott smooth and shiny. No nodules, masses or lesions are identified. Ink code: black-resection margin. Section code: (4A-4B) colon segment, bisected, one in each cassette. Specimen entirely submitted. 08/18/17 ICD-9 CODES: CPT CODES: 1: 48219, 07406, 56746 2: 22581 3: 85360 4: 97144 PROCEDURE/ADDENDA: Addendum SPI Addendum Diagnosis IMMUNOHISTOCHEMISTRY TESTING FOR MISMATCH REPAIR PROTEINS: MLH1: Loss of nuclear expression. MSH2: Intact nuclear expression. MSH6: Intact nuclear expression. PMS2: Loss of nuclear expression. Background nonneoplastic tissue/internal control with intact nuclear expression. INTERPRETATION: Loss of nuclear expression of MLH1 and PMS2: testing for methylation of the MLH1 promoter and/or mutation of BRAF is indicated (the presence of a BRAF V600E mutation and/or MLH1 methylation suggests that the tumor is sporadic and germline evaluation is probably not indicated; absence of both MLH1 methylation and of BRAF V600E mutation suggests the possibility of Cespedes syndrome, and sequencing and/or large deletion/duplication testing of germline MLH1 may be indicated)* * There are exceptions to the above IHC interpretations. These results should not be considered in isolation, and clinical correlation with genetic counseling is recommended to assess the need for germline testing. * This test was developed and its performance characteristics determined by [facility]. It has not been cleared or approved by the [place]. Food and Drug Administration. The FDA has determined that such clearance or approval is not necessary. This test is used for clinical purposes. It should not be regarded as investigational or for research. Addendum Comment {Not Entered} Electronically Signed Out Blayne Nichole MD, Ph.D. Electronically Signed Out Blayne Nichole MD, Ph.D. [facility] [address], [place] [address] Technical component performed at [facility], [address], [place], [address]
== END 2017-08-19 12:02 | disposition home health service (06) | DRG 331 ==
LOC: SAS 05:50 → OSC 13:19
PROVIDERS: ADMIT Surgery; ATTEND Surgery
PROC: 0DBN0ZZ Excision of Sigmoid Colon, Open Approach (ICD-10-PCS; principal; 2017-08-16 07:15)
DX: C18.7 Malignant neoplasm of sigmoid colon (principal); I10 Essential (primary) hypertension; E78.5 Hyperlipidemia, unspecified; K59.00 Constipation, unspecified